=== PATIENT | male | born 1990 | race Caucasian/White ===

== ENCOUNTER → 2018-08-11 | Outpatient (CLI) | payer OTHER ==
--- NOTE | 2018-08-11 15:00 | REP ---
LEFT ANKLE SERIES: Four views. HISTORY: Pain. FINDINGS: Four views of the left ankle demonstrate an obliquely oriented fracture of the distal fibular diaphysis with associated swelling. There is widening of the medial aspect of the ankle mortise. No tibial fracture is seen. There is diffuse anterior and medial soft tissue swelling as well as lateral swelling. IMPRESSION: Oblique fracture distal fibular diaphysis. Widening of the ankle mortise medially. Diffuse ankle swelling. Electronically Signed by José Miguel Morgan MD 08/11/2018 03:25 P
== END ==
LOC: M WUC 13:41
PROVIDERS: ATTEND Physician Assistant
DX: S82.432A Displaced oblique fracture of shaft of left fibula, initial encounter for closed fracture (principal); Y92.9 Unspecified place or not applicable; Y93.9 Activity, unspecified; Y99.9 Unspecified external cause status; X58.XXXA Exposure to other specified factors, initial encounter